=== PATIENT | female | born 1935 | race Caucasian/White ===

== ENCOUNTER 2017-07-19 17:05 | Emergency (ER) | payer OTHER ==
[2017-07-19 17:09] VITALS: RESP 16
--- NOTE | 2017-07-19 17:42 | EDPHY ---
H & P Stated Complaint: LIGHTHEADED, DIZZY, NAUSEA FOR SEVERAL WEEKS, BUT TODAY LASTED LONGER Source: Patient Exam Limitations: No limitations - Personal History Current Tetanus/Diphtheria Vaccine: Unsure - Medical/Surgical History Hx Asthma: Yes Hx Chronic Respiratory Disease: No Hx Diabetes: No Hx Cardiac Disease: No Hx Renal Disease: No Hx Cirrhosis: No Hx Alcoholism: No Hx HIV/AIDS: No Hx Splenectomy or Spleen Trauma: No Other PMH: ASTHMA, LOW ADRENALS, BREAST CANCER, CRANIOTOMY FOR MENIGIOMA, COLECTOMY - Social History Smoking Status: Never smoked Time Seen by Provider: 07/19/17 18:04 HPI/ROS: HPI: This 81-year-old female who presents with Chief Complaint: Lightheadedness Location: Head Quality: Lightheaded Duration: 2-3 months Signs and Symptoms: + nausea, + warm feeling, no palpitation, no headache, no vision changes, no neck stiffness, no vomiting, no fever, no chest pain, shortness of breath, no abdominal pain, no seizure activity, no dysuria, no nasal congestion, no sinus pressure Timing: Sudden, resolved, intermittent Severity: Moderate Context: Patient has a history of adrenal insufficiency, hypothyroidism, craniotomy presents today after an episode of lightheadedness while driving in her car that lasted several minutes and has since resolved. She reports that the lightheadedness has been occurring intermittently over the last 2-3 months. She advised her primary care provider who directed her to Cardiology and she has been wearing a Holter monitor over the last week. Unfortunately Holter monitor malfunctioned yesterday and she had to turn it in. She denies palpitation/chest pain. No prior cardiac disease. She does report over the last 2 months she has both her Synthroid and Duran dose is reduced. She follows up with endocrinology this week. Modifying Factors: regular medications Comment: ROS: Constitutional: No fever, no chills, no weight loss Eyes: No blurred vision Respiratory: No shortness of breath, no cough Cardiovascular: No chest pain Gastrointestinal: No nausea, no vomiting no diarrhea Genitourinary: No dysuria Extremities: No myalgias Neurologic: No weakness, no numbness Skin: No rashes Hematologic: No bruising, no bleeding ([place]) - Physical Exam Exam: CONSTITUTIONAL: well-appearing white female, awake and alert, no obvious distress HEENT: Atraumatic and normocephalic, PERRL, EOMI. Tympanic membranes clear. Oropharynx clear, no exudate and moist pink mucosa. Airway patent. No lymphadenopathy. No meningismus. Cardiovascular: Normal S1/S2, regular rate, regular rhythm, without murmur rub or gallop. PULMONARY/CHEST: Symmetrical and nontender. Clear to auscultation bilaterally Good air movement. No accessory muscle usage. ABDOMEN: Soft, nondistended, nontender, no rebound, no guarding, no peritoneal signs, no masses or organomegaly. No CVAT. EXTREMITIES: 2/2 pulses, no deformities, no clubbing, no cyanosis or edema. NEUROLOGICAL: no focal neuro deficits. GCS 15. SKIN: Warm and dry, no erythema. no rash. Good capillary refill. (Karla Mckeon) Constitutional: Initial Vital Signs Temperature (C) 36.6 C 07/19/17 17:06 Heart Rate 72 07/19/17 17:06 Respiratory Rate 16 07/19/17 17:06 Blood Pressure 172/96 H 07/19/17 17:06 O2 Delivery Mode Room Air Allergies/Adverse Reactions: shellfish derived Allergy (Verified 07/19/17 17:14) Home Medications: Medication Instructions Recorded Amoxicillin/Clavulanate Pot 875 mg PO BID #14 tab 07/19/17 [Augmentin 875 MG TAB (*)] Cortef 07/19/17 Fluticasone Nasal [Flonase Nasal 2 sprays NASAL DAILY #1 mdi 07/19/17 Luther (RX)] Fluticasone/Salmeter 250/50Mcg 07/19/17 [Advair 250/50 (*)] LORAZEPAM 07/19/17 Lunesta 07/19/17 Synthroid 07/19/17 Medical Decision Making - Diagnostics EKG Interpretation: E (Karla Mckeon) Imaging Results: Imaging Impressions Head CT 07/19/17 17:51 Impression: 1. Old intracranial findings. Nothing acute. 2. Moderate sinus disease, with air-fluid level in the left maxillary sinus with significant debris, and possibly in the right sphenoid sinus as well. Findings and recommendations discussed with Karla Mckeon at 1823 hour, 2016. Final report concurs with initial preliminary interpretation. ED Course/Re-evaluation: Labs, head CT scan ordered No signs of CVA/adrenal storm 1800: Reassessed patient; complaining of GERD; explains that she only takes homeopathic medication; politely refuses PPI/Tums. EKG my read shows no arrhythmias/acute ischemic changes Sodium 130 noted; mildly low 1830: Called by radiologist; head CT scan shows no acute intracranial process; + moderate sinus disease in the left maxillary sinus and right sphenoid sinus. Offered patient meclizine but refused. Rx for Augmentin and Flonase given for sinusitis Thyroid studies within normal limits (Karla Mckeon) Differential Diagnosis: Dizziness including but not limited to peripheral and central causes of vertigo , hypothyroidism, adrenal insufficiency orthostatic causes including dehydration , and blood loss. (Karla Mckeon) Other Provider: PHYSICIAN DOCUMENTATION: The patient was evaluated and managed by the Physician Director Pediatric and myself. I have reviewed the chart. In addition, I examined the patient myself at 1900. History confirmed as intermittent symptoms included dizzy and lightheaded for several months. Physical findings as follows: Alert, normally conversant. No facial swelling or redness. Labs reviewed including slightly normal sodium, normal potassium, normal TSH. CT results reviewed with PA and the patient. Potential benefit and potential harm of treating her CT finding of sinusitis with antibiotics discussed with the patient, consented. I am the secondary supervising physician. (Pako Serna) - Data Points Laboratory Results: Laboratory Results 07/19/17 17:52 07/19/17 17:52 07/19/17 07/19/17 17:52 17:52 WBC 4.94 10^3/uL 10^3/uL (3.80-9.50) RBC 4.14 10^6/uL L 10^6/uL (4.18-5.33) Hgb 13.2 g/dL g/dL (12.6-16.3) Hct 37.1 % L % (38.0-47.0) MCV 89.6 fL fL (81.5-99.8) MCH 31.9 pg pg (27.9-34.1) MCHC 35.6 g/dL g/dL (32.4-36.7) RDW 12.4 % % (11.5-15.2) Plt Count 282 10^3/uL 10^3/uL (150-400) MPV 9.1 fL fL (8.7-11.7) Neut % (Auto) 57.7 % % (39.3-74.2) Lymph % (Auto) 24.1 % % (15.0-45.0) Real % (Auto) 9.9 % % (4.5-13.0) Eos % (Auto) 7.3 % % (0.6-7.6) Baso % (Auto) 0.8 % % (0.3-1.7) Nucleat RBC Rel Count 0.0 % % (0.0-0.2) Absolute Neuts (auto) 2.85 10^3/uL 10^3/uL (1.70-6.50) Absolute Lymphs (auto) 1.19 10^3/uL 10^3/uL (1.00-3.00) Absolute Monos (auto) 0.49 10^3/uL 10^3/uL (0.30-0.80) Absolute Eos (auto) 0.36 10^3/uL 10^3/uL (0.03-0.40) Absolute Basos (auto) 0.04 10^3/uL 10^3/uL (0.02-0.10) Absolute Nucleated RBC 0.00 10^3/uL 10^3/uL (0-0.01) Immature Gran % 0.2 % % (0.0-1.1) Immature Gran # 0.01 10^3/uL 10^3/uL (0.00-0.10) Sodium 130 mEq/L L mEq/L (134-144) Potassium 3.7 mEq/L mEq/L (3.5-5.2) Chloride 94 mEq/L L mEq/L (97-110) Carbon Dioxide 27 mEq/l mEq/l (22-31) Anion Gap 9 mEq/L mEq/L (8-16) BUN 16 mg/dL mg/dL (7-23) Creatinine 0.7 mg/dL mg/dL (0.6-1.0) Estimated GFR > 60 Glucose 91 mg/dL mg/dL (70-100) Calcium 8.9 mg/dL mg/dL (8.5-10.4) Troponin I < 0.012 ng/mL ng/mL (0.000-0.034) TSH 0.530 uIU/mL uIU/mL (0.465-4.680) Free T4 1.67 ng/dL ng/dL (0.59-2.19) Medications Given: Discontinued Medications Meclizine HCl (Meclizine Hcl) 25 mg PO EDNOW ONE Stop: 07/19/17 18:34 Last Admin: 07/19/17 18:40 Dose: Not Given Departure - Departure Disposition: Home, Routine, Self-Care Clinical Impression: Sinusitis Qualifiers: Sinusitis location: maxillary Chronicity: acute Recurrence: non-recurrent Qualified Code(s): J01.00 - Acute maxillary sinusitis, unspecified Condition: Good Instructions: Sinusitis (ED), Lightheadedness (ED) Additional Instructions: Keep follow-up appointment with endocrinology and Cardiology. Follow up with primary care provider as previously scheduled. Take medications as prescribed. Referrals: Familia Jim MD [Medical Doctor] - 5-7 days, if not improved Radhika Hope MD [Primary Care Provider] - As per Instructions Prescriptions: Amoxicillin/Clavulanate Pot [Augmentin 875 MG TAB (*)] 875 mg PO BID #14 tab Fluticasone Nasal [Flonase Nasal Luther (RX)] 2 sprays NASAL DAILY #1 mdi
--- NOTE | 2017-07-19 17:47 | CPEKG ---
Heart Rate: 63 RR Interval: 952 P-R Interval: 144 QRSD Interval: 88 QT Interval: 424 QTC Interval: 435 P Wilson: -27 QRS Wilson: -19 T Wave Wilson: 36 EKG Severity - BORDERLINE ECG - EKG Impression: SINUS RHYTHM EKG Impression: BORDERLINE LEFT AXIS DEVIATION EKG Impression: BORDERLINE T ABNORMALITIES, ANTERIOR LEADS Electronically Signed By: Pako Serna 19-Jul-2017 17:50:32
[2017-07-19 18:01] LABS: % IMMATURE GRANULYOCYTES 0.2 % (0.0-1.1); ABSOLUTE IMMATURE GRANULOCYTES 0.01 10^3/uL (0.00-0.10); ADD DIFF? NO; ADD MORPH? NO; ADD SCAN? NO; ATYPICAL LYMPHOCYTE FLAG 0 (0-99); FRAGMENT RBC FLAG 0 (0-99); HEMATOCRIT 37.1 % (38.0-47.0); HEMOGLOBIN 13.2 g/dL (12.6-16.3); LEFT SHIFT FLG 0 (0-99); LIPEMIA HEMOLYSIS FLAG 90 (0-99); MEAN CELL HEMOGLOBIN 31.9 pg (27.9-34.1); MEAN CELL HEMOGLOBIN CONCENTR. 35.6 g/dL (32.4-36.7); MEAN CELL VOLUME 89.6 fL (81.5-99.8); MEAN PLATELET VOLUME 9.1 fL (8.7-11.7); PLATELET CLUMPS FLAG 0 (0-99); PLATELET COUNT 282 10^3/uL (150-400); RED BLOOD CELL COUNT 4.14 10^6/uL (4.18-5.33); RED CELL DISTRIBUTION WIDTH 12.4 % (11.5-15.2)
[2017-07-19 18:16] LABS: ANION GAP 9 mEq/L (8-16); CALCIUM 8.9 mg/dL (8.5-10.4); CARBON DIOXIDE 27 mEq/l (22-31); CHLORIDE 94 mEq/L (97-110); CREATININE 0.7 mg/dL (0.6-1.0); GLOMERULAR FILTRATION RATE > 60; GLUCOSE 91 mg/dL (70-100); POTASSIUM 3.7 mEq/L (3.5-5.2); SODIUM 130 mEq/L (134-144)
[2017-07-19 18:27] LABS: TROPONIN I < 0.012 ng/mL (0.000-0.034)
[2017-07-19] MEDS ORDERED: MECLIZINE HCL 25 MG TAB PO ONE (18:33)
[2017-07-19 19:23] VITALS: BP 145/73; PULSE 78; TEMP 98.1; O2SAT 96
== END 2017-07-19 19:23 | disposition home or self-care (01) ==
DX: J01.00 Acute maxillary sinusitis, unspecified (principal); J45.909 Unspecified asthma, uncomplicated; Z85.3 Personal history of malignant neoplasm of breast

== ENCOUNTER 2017-10-03 23:18 | Emergency (ER) | payer OTHER ==
[2017-10-03] MEDS ORDERED: NS 500 ML IV ONE (23:54)
--- NOTE | 2017-10-03 23:59 | EDPHY ---
H & P Stated Complaint: NAUSEA GERD LIKE FEELING FAINT FEELING SINCE 6 P.M. Time Seen by Provider: 10/03/17 23:30 HPI/ROS: HPI The patient presents with what she describes as GERD symptoms, nausea, lightheadedness which began at about 6 o'clock. Her symptoms began slowly, she last ate at about 3:00 p.m.. She describes a burning sensation which begins in her epigastrium and radiates upwards toward her chest. She tried to vomit, though was unable to and is feeling nauseated. She says now when she stands up or walks she feels somewhat lightheaded, this is improved when she is at rest. She has had other episodes of GERD though this feels more severe. She thinks she is feeling more anxious than usual and could be contributing to her symptoms. She denies any shortness of breath, diaphoresis. She says she has had a coronary CT with a low calcium score about 1 year ago. REVIEW OF SYSTEMS Constitutional: No fever, no chills. Eyes: No discharge. ENT: No sore throat. Cardiovascular: No chest pain, no palpitations. Respiratory: No cough, no shortness of breath. Gastrointestinal: No abdominal pain, no vomiting. Genitourinary: No hematuria. Musculoskeletal: No back pain. Skin: No rashes. Neurological: No headache. PMHx: Adrenal insufficiency, here breast cancer, history of pulmonary embolism , hypertension Soc Hx: Lives with family PHYSICAL General Appearance: Alert, no distress Eyes: Pupils equal and round no pallor or injection ENT, Mouth: Mucous membranes moist Respiratory: There are no retractions, lungs are clear to auscultation Cardiovascular: Regular rate and rhythm Gastrointestinal: Abdomen is soft and non-tender, no masses, bowel sounds normal Neurological: A&O, moves all extremities Skin: Warm and dry, no rashes Musculoskeletal: Neck is supple non tender Extremities: symmetrical, full range of motion Psychiatric: Patient is oriented X 3, there is no agitation Source: Patient Exam Limitations: No limitations - Personal History Current Tetanus/Diphtheria Vaccine: Unsure Current Tetanus Diphtheria and Acellular Pertussis (TDAP): Unsure - Medical/Surgical History Hx Asthma: Yes Hx Chronic Respiratory Disease: No Hx Diabetes: No Hx Cardiac Disease: No Hx Renal Disease: No Hx Cirrhosis: No Hx Alcoholism: No Hx HIV/AIDS: No Hx Splenectomy or Spleen Trauma: No Other PMH: ASTHMA, LOW ADRENALS, BREAST CANCER, P.E., CRANIOTOMY FOR MENIGIOMA, COLECTOMY, SPINAL STINOSIS WITH PINCHED NERVE - Social History Smoking Status: Never smoked Constitutional: Initial Vital Signs Temperature (C) 36.8 C 10/03/17 23:20 Heart Rate 78 10/03/17 23:20 Respiratory Rate 18 10/03/17 23:20 Blood Pressure 164/100 H 10/03/17 23:20 O2 Sat (%) 95 10/03/17 23:20 O2 Delivery Mode Room Air Allergies/Adverse Reactions: shellfish derived Allergy (Verified 10/03/17 23:24) Home Medications: Medication Instructions Recorded Cortef 07/19/17 Fluticasone/Salmeter 250/50Mcg 07/19/17 [Advair 250/50 (*)] Lunesta 07/19/17 Synthroid 07/19/17 Hydrochlorothiazide [HCTZ (*)] 6.25 mg PO 10/03/17 Medical Decision Making - Diagnostics EKG Interpretation: EKG: Complete interpretation has been separately recorded in the [employer] archive. Summary impression: T-wave inversions in V1 through V4, unchanged from prior EKG Imaging Results: Chest x-ray two view shows no cardiomegaly, no effusion, no infiltrate, interpreted by me, radiology interpretation is pending. Imaging: I viewed and interpreted images myself Differential Diagnosis: 81-year-old female with adrenal insufficiency, history of GERD, hypertension, history of PE with breast cancer presents from home with GERD symptoms associated with nausea and dizziness. She also reports feeling anxious. On exam, she is slightly hypertensive, vital signs are otherwise unremarkable. Differential diagnosis includes GERD, dehydration, anxiety, adrenal crisis, ACS. PE is a consideration, however I feel unlikely given she has no shortness of breath, hypoxia, tachycardia. In the emergency department, patient was given a fluid bolus, basic labs were checked and were all unremarkable. I would expect her troponin to be elevated given that she has had over 4 hours of pain at this point. She requested medication for nausea and anxiety and was given Zofran and Ativan. After she received this, she felt completely better. I discussed anxiety with the patient and her son at the bedside. It seems that she is having increasing frequency of symptoms of anxiety and also has not been sleeping well. She has lorazepam at home already for anxiety and I advised her that she can try taking this, however given the increasing frequency of these episodes, she may benefit from seeing primary care doctor to discuss long-term management. She is in agreement with this plan and will be discharged home. - Data Points Laboratory Results: Laboratory Results 10/03/17 23:50 10/03/17 23:50 10/03/17 10/03/17 23:50 23:50 WBC 5.63 10^3/uL 10^3/uL (3.80-9.50) RBC 4.53 10^6/uL 10^6/uL (4.18-5.33) Hgb 14.4 g/dL g/dL (12.6-16.3) Hct 39.3 % % (38.0-47.0) MCV 86.8 fL fL (81.5-99.8) MCH 31.8 pg pg (27.9-34.1) MCHC 36.6 g/dL g/dL (32.4-36.7) RDW 12.1 % % (11.5-15.2) Plt Count 316 10^3/uL 10^3/uL (150-400) MPV 8.8 fL fL (8.7-11.7) Neut % (Auto) 58.1 % % (39.3-74.2) Lymph % (Auto) 25.4 % % (15.0-45.0) Starr % (Auto) 9.6 % % (4.5-13.0) Eos % (Auto) 6.2 % % (0.6-7.6) Baso % (Auto) 0.5 % % (0.3-1.7) Nucleat RBC Rel Count 0.0 % % (0.0-0.2) Absolute Neuts (auto) 3.27 10^3/uL 10^3/uL (1.70-6.50) Absolute Lymphs (auto) 1.43 10^3/uL 10^3/uL (1.00-3.00) Absolute Monos (auto) 0.54 10^3/uL 10^3/uL (0.30-0.80) Absolute Eos (auto) 0.35 10^3/uL 10^3/uL (0.03-0.40) Absolute Basos (auto) 0.03 10^3/uL 10^3/uL (0.02-0.10) Absolute Nucleated RBC 0.00 10^3/uL 10^3/uL (0-0.01) Immature Gran % 0.2 % % (0.0-1.1) Immature Gran # 0.01 10^3/uL 10^3/uL (0.00-0.10) Sodium 133 mEq/L L mEq/L (134-144) Potassium 3.6 mEq/L mEq/L (3.5-5.2) Chloride 97 mEq/L mEq/L (97-110) Carbon Dioxide 24 mEq/l mEq/l (22-31) Anion Gap 12 mEq/L mEq/L (8-16) BUN 14 mg/dL mg/dL (7-23) Creatinine 0.6 mg/dL mg/dL (0.6-1.0) Estimated GFR > 60 Glucose 107 mg/dL H mg/dL (70-100) Calcium 8.9 mg/dL mg/dL (8.5-10.4) Troponin I < 0.012 ng/mL ng/mL (0.000-0.034) Medications Given: Discontinued Medications Sodium Chloride (Ns) 500 mls @ 0 mls/hr IV EDNOW ONE; Wide Open PRN Reason: Protocol Stop: 10/03/17 23:55 Last Admin: 10/03/17 23:58 Dose: 500 mls Lorazepam (Ativan Injection) 0.5 mg IVP EDNOW ONE Stop: 10/04/17 01:12 Last Admin: 10/04/17 01:14 Dose: 0.5 mg Ondansetron HCl (Zofran) 4 mg IVP EDNOW ONE Stop: 10/04/17 01:07 Last Admin: 10/04/17 01:14 Dose: 4 mg Ondansetron HCl (Zofran Odt 4 Mg Prepack#2) 1 btl TAKEHOME EDNOW ONE Stop: 10/04/17 02:06 Last Admin: 10/04/17 02:11 Dose: 1 btl Departure - Departure Disposition: Home, Routine, Self-Care Clinical Impression: Nausea, Lightheadedness, Dyspepsia Condition: Good Instructions: Ondansetron (By mouth), Gastroesophageal Reflux in Children (ED) , Acute Nausea and Vomiting (ED), Anxiety (ED) Additional Instructions: Please return to the emergency department if your worse in any way. Referrals: Radhika Hope MD [Primary Care Provider] - As per Instructions Dereck Carrasco MD [Medical Doctor] - As per Instructions
[2017-10-04] LABS: % IMMATURE GRANULYOCYTES 0.2 % (0.0-1.1); ABSOLUTE IMMATURE GRANULOCYTES 0.01 10^3/uL (0.00-0.10); ADD DIFF? NO; ADD MORPH? NO; ADD SCAN? NO; ATYPICAL LYMPHOCYTE FLAG 0 (0-99); FRAGMENT RBC FLAG 0 (0-99); HEMATOCRIT 39.3 % (38.0-47.0); HEMOGLOBIN 14.4 g/dL (12.6-16.3); LEFT SHIFT FLG 0 (0-99); LIPEMIA HEMOLYSIS FLAG 90 (0-99); MEAN CELL HEMOGLOBIN 31.8 pg (27.9-34.1); MEAN CELL HEMOGLOBIN CONCENTR. 36.6 g/dL (32.4-36.7); MEAN CELL VOLUME 86.8 fL (81.5-99.8); MEAN PLATELET VOLUME 8.8 fL (8.7-11.7); PLATELET CLUMPS FLAG 0 (0-99); PLATELET COUNT 316 10^3/uL (150-400); RED BLOOD CELL COUNT 4.53 10^6/uL (4.18-5.33); RED CELL DISTRIBUTION WIDTH 12.1 % (11.5-15.2)
--- NOTE | 2017-10-04 00:03 | CPEKG ---
Heart Rate: 66 RR Interval: 909 P-R Interval: 144 QRSD Interval: 90 QT Interval: 408 QTC Interval: 428 P [place]: -40 QRS [place]: -7 T Wave [place]: 46 EKG Severity - ABNORMAL ECG - EKG Impression: SINUS RHYTHM EKG Impression: NONSPECIFIC T ABNORMALITIES, ANT-LAT LEADS Electronically Signed By: Ashli Monroy 04-Oct-2017 07:39:55
[2017-10-04 00:23] LABS: CALCIUM 8.9 mg/dL (8.5-10.4); CARBON DIOXIDE 24 mEq/l (22-31); CHLORIDE 97 mEq/L (97-110); CREATININE 0.6 mg/dL (0.6-1.0); GLOMERULAR FILTRATION RATE > 60; GLUCOSE 107 mg/dL (70-100); SODIUM 133 mEq/L (134-144)
[2017-10-04 00:34] LABS: TROPONIN I < 0.012 ng/mL (0.000-0.034)
[2017-10-04 00:38] LABS: ANION GAP 12 mEq/L (8-16); POTASSIUM 3.6 mEq/L (3.5-5.2)
[2017-10-04] MEDS ORDERED: ONDANSETRON 4 MG/2 ML VIAL IVP ONE (01:06)
[2017-10-04] MEDS ORDERED: LORazepam 2 MG/ML INJ IVP ONE (01:11)
[2017-10-04 01:25] VITALS: RESP 16
[2017-10-04] MEDS ORDERED: ONDANSETRON 4MG PREPACK#2 BTL TAKEHOME ONE (02:05)
[2017-10-04 02:25] VITALS: BP 132/74; PULSE 73; TEMP 98.1; O2SAT 94
== END 2017-10-04 02:26 | disposition home or self-care (01) ==
DX: R11.0 Nausea (principal); R42 Dizziness and giddiness; R10.13 Epigastric pain; I10 Essential (primary) hypertension; J45.909 Unspecified asthma, uncomplicated; Z85.3 Personal history of malignant neoplasm of breast
CPT/HCPCS: 71020; 93005; 96374; 96375; 99285; J2060; J2405